=== PATIENT | female | born 1980 | race Two or more races ===

== ENCOUNTER 2022-01-13 17:03 | Emergency (ER) | payer MEDICAID ==
[~2022-01-13] VITALS: Ht 165.1 cm; Wt 84.5 kg
[2022-01-13 17:04] VITALS: BP 134/79
[2022-01-13 18:23] LABS: Basophils # (auto) 0 10 ^3/uL (0-0.2); Basophils % (auto) 0.6 % (0.0-2.0); Eosinophils # (auto) 0.4 10 ^3/uL (0-0.8); Eosinophils % (auto) 5.2 % (0.0-7.0); Hematocrit 41.6 % (36.0-46.0); Hemoglobin 13.6 g/dL (12.2-16.2); Lymphocytes # (auto) 2.4 10 ^3/uL (0.4-5.4); Lymphocytes % (auto) 34.1 % (10.0-50.0); Mean Corpuscular Hemoglobin 30.6 pg (28.0-32.0); Mean Corpuscular Hgb Conc. 32.8 g/dL (32.0-36.0); Mean Corpuscular Volume 93.4 fL (80.0-100.0); Monocytes # (auto) 0.6 10 ^3/uL (0-1.3); Monocytes % (auto) 8.8 % (0.0-12.0); Neutrophils # (auto) 3.7 10 ^3/uL (1.6-8.6); Neutrophils % (auto) 51.3 % (37.0-80.0); Nucleated Red Blood Cells % 0.6 %; Red Blood Cells 4.45 10^6/uL (4.0-5.20); Red Cell Distribution Width 12.2 % (11.8-14.3); White Blood Cell 7.1 10^3/uL (4.4-10.8)
[2022-01-13 18:34] LABS: Albumin 4.1 g/dL (3.4-5.0); BUN/Creatinine Ratio 19.4; Calcium 8.8 mg/dL (8.5-10.1); Magnesium 2.4 mg/dL (1.6-2.6); Potassium 3.9 mmol/L (3.5-5.1)
[2022-01-13 18:37] LABS: Bilirubin, Total 0.5 mg/dL (0.2-1.0); Total Protein 6.8 g/dL (6.4-8.2)
[2022-01-13 18:40] LABS: INR 0.97 (0.9-1.15); Partial Thromboplastin Time 28.6 sec (24.6-33.4)
== END 2022-01-14 01:49 | disposition home or self-care (01) ==
LOC: ER 17:03
DX: R07.89 Other chest pain (principal)
CPT/HCPCS: 36415; 71045; 80053; 83735; 83880; 84443; 84484; 85025; 85610; 85730; 93005

== ENCOUNTER 2023-01-06 16:13 | Emergency (ER) | payer MEDICAID ==
[~2023-01-06] VITALS: Ht 175.3 cm; Wt 81.1 kg
[~2023-01-06 16:13] MED LIST: CEPH500C PO; IBUP-1456 PO
[2023-01-06 17:23] LABS: Basophils # (auto) 0.1 10 ^3/uL (0-0.2); Basophils % (auto) 0.7 % (0.0-2.0); Eosinophils # (auto) 0.1 10 ^3/uL (0-0.8); Eosinophils % (auto) 1.3 % (0.0-7.0); Hematocrit 39.1 % (36.0-46.0); Hemoglobin 13.5 g/dL (12.2-16.2); Lymphocytes # (auto) 0.9 10 ^3/uL (0.4-5.4); Lymphocytes % (auto) 9.6 % (10.0-50.0); Mean Corpuscular Hemoglobin 31.3 pg (28.0-32.0); Mean Corpuscular Hgb Conc. 34.6 g/dL (32.0-36.0); Mean Corpuscular Volume 90.6 fL (80.0-100.0); Monocytes # (auto) 0.8 10 ^3/uL (0-1.3); Neutrophils # (auto) 7.7 10 ^3/uL (1.6-8.6); Neutrophils % (auto) 80.4 % (37.0-80.0); Red Blood Cells 4.32 10^6/uL (4.0-5.20); Red Cell Distribution Width 12.4 % (11.8-14.3); White Blood Cell 9.5 10^3/uL (4.4-10.8)
[2023-01-06] MEDS ORDERED: ACETAMINOPHEN 500 MG TAB PO ONE ×2 (17:30→19:15)
[2023-01-06 17:40] LABS: Potassium 3.6 mmol/L (3.5-5.1)
[2023-01-06 17:43] LABS: Urine Bacteria FEW /hpf (None Seen); Urine Blood Negative /uL (Negative); Urine WBC 17 /hpf (0 - 5)
[2023-01-06 17:56] LABS: Albumin 3.8 g/dL (3.4-5.0); BUN/Creatinine Ratio 12.3 (10.0-20.0); Bilirubin, Total 0.5 mg/dL (0.2-1.0); Calcium 8.9 mg/dL (8.5-10.1); Total Protein 7.3 g/dL (6.4-8.2)
[2023-01-06] MEDS ORDERED: LEVO750T8 PO (19:11)
[2023-01-06] MEDS ORDERED: ACET500T58 PO (19:11)
[2023-01-06] MEDS ORDERED: ZOFR4T PO (19:11)
[2023-01-06] MEDS ORDERED: ONDANSETRON ODT 4 MG TAB PO ONE (19:15)
[2023-01-06] MEDS ORDERED: levoFLOXacin 250 MG TAB PO ONE (19:15)
[2023-01-06 20:08] VITALS: BP 125/78; PULSE 79; RESP 18; TEMP 98.6; O2SAT 98
== END 2023-01-06 20:11 | disposition home or self-care (01) ==
LOC: ER 16:13
DX: N12 Tubulo-interstitial nephritis, not specified as acute or chronic (principal)
CPT/HCPCS: 36415; 80053; 81001; 85025; 99284; Q0162

== ENCOUNTER 2024-11-06 16:40 | Emergency (ER) | payer MEDICAID ==
[~2024-11-06] VITALS: Ht 167.6 cm; Wt 88.3 kg
[~2024-11-06 16:40] MED LIST changes: +ACET500T58 PO; +LEVO750T8 PO; +ZOFR4T PO
--- NOTE | 2024-11-06 17:35 | ED.PDOC ---
HPI Allergic reaction HPI Comments 43 y.o female presents to the ED for an evaluation of generalized pruritus associated with a sore throat, headache and swollen extremities and upper lip s/p eating shrimp yesterday. Patient reports an 8/10 constant sharp headache that is non radiating and has no alleviating factors. Patient denies any SOB, difficulty swallowing, chest or abdominal pain. Patient denies any known allergies or medical history. Chief Complaint: Allergic Reaction Time Seen by MD: 17:20 Primary Care Provider: UNKNOWN Reviewed Notes: Nurses Notes, Medications, Allergies Allergies: Coded Allergies: NO KNOWN ALLERGIES (Unverified , 01/13/22) Home Meds Active Scripts Ondansetron Odt 4MG Tab (ZOFRAN PO) 4 Mg Tb, 4 MG PO Q6HP PRN, #20 TAB ODT TAB-DISSOLVE IN MOUTH, THEN SWALLOW Prov:AMBER MOHR [facility] 01/06/23 Acetaminophen (Acetaminophen) 500 Mg Tab, 500 MG PO Q4HP PRN, #20 TAB Prov:AMBER MOHR [facility] 01/06/23 Levofloxacin (Levaquin 750 mg) 750 Mg Tab, 1 TAB PO DAILY for 9 Days, #9 TAB Prov:AMBER MOHR 01/06/23 Cephalexin Monohydrate (Cephalexin) 500 Mg Cap, 1 CAP PO QID, #28 CAP Prov:ANA STEVENS 06/02/22 Ibuprofen (Ibuprofen) 800 Mg Tab, 1 TAB PO TID, #20 TAB Prov:ANA STEVENS 06/02/22 Information Source: Patient Mode of Arrival: Ambulatory Severity: Moderate SOB: None Difficulty swallowing: None Pruritus: Moderate Timing: Days (1) Duration: Since onset Location: Generalized Exposed to: Food Developed: Pruritus, Throat Swelliing History of: None Modyifying Factors: None Past Medical History PAST MEDICAL HISTORY: Denies Surgical History: Denies all surgeries APPLICATION ASSISTANT History: No Pertinent APPLICATION ASSISTANT History Family History Family History: Reviewed,noncontributory to illness Social History Smoker: Non-Smoker Alcohol: Denies ETOH Use Drugs: Denies Drug Use Lives In: Home Constitutional: denies: chills, diaphoresis, fatigue, fever, malaise, sweats, weakness, others EENTM: denies: blurred vision, double vision, ear bleeding, ear discharge, ear drainage, ear pain, ear ringing, eye pain, eye redness, hearing loss, mouth pain, mouth swelling, nasal discharge, nose bleeding, nose congestion, nose pain, photophobia, tearing, throat pain, throat swelling, voice changes, others Respiratory: denies: cough, hemoptysis, orthopnea, SOB at rest, shortness of breath, SOB with excertion, stridor, wheezing, others Cardiovascular: denies: chest pain, dizzy spells, diaphoresis, Dyspnea on exertion, edema, irregular heart beat, left arm pain, lightheadedness, palpitations, PND, syncope, others Gastrointestinal: denies: abdomen distended, abdominal pain, blood streaked bowels, constipated, diarrhea, dysphagia, difficulty swallowing, hematemesis, melena, nausea, poor appetite, poor fluid intake, rectal bleeding, rectal pain, vomiting, others Genitourinary: denies: abnormal vagina bleeding, burning, dyspareunia, dysuria, flank pain, frequency, hematuria, incontinence, pain, , vagina discharge, urgency, others Neurological: reports: headache; denies: dizziness, fainting, left sided numbness, left sided weakness, numbness, paresthesia, pre-existing deficit, right sided numbness, right sided weakness, seizure, speech problems, tingling, tremors, weakness, others Musculoskeletal: denies: back pain, gout, joint pain, joint swelling, muscle pain, muscle stiffness, neck pain, others Integumetry: denies: bruises, change in color, change in hair/nails, dryness, laceration, lesions, lumps, rash, wounds, others Allergic/Immunocompromised: reports: Itching, others (sore throat and headache); denies: Difficulty Healing, Frequent Infections, Hives Hematologic/Lymphatic: denies: anemia, blood clots, easy bleeding, easy bruising, swollen glands, others Endocrine: denies: excessive hunger, excessive sweating, excessive thirst, excessive urination, flushing, intolerance to cold, intolerance to heat, unexplained weight gain, unexplained weight loss, others Psychiatric: denies: anxiety, bipolar disorder, depression, hopeless, panic disorder, schizophrenia, sleepless, suicidal, others All Other Systems: Reviewed and Negative Physical Exam General Appearance: No Apparent Distress, Normal HEENT: Normal ENT Inspection Neck: Normal Inspection Respiratory: Chest Non-Tender, Lungs Clear, No Accessory Muscle Use, No Respiratory Distress, Normal Breath Sounds Cardiovascular: No Edema, No JVD, No Murmur, No Gallop, Normal Peripheral Pulses, Regular Rate/Rhythm Breast Exam: Deferred Gastrointestinal: No Organomegaly, Non Tender, Normal Bowel Sounds Genitalia: Deferred Pelvic: Deferred Rectal: Deferred Extremities: Normal inspection Neurologic: Alert, pack master II-XII nml as Tested, No Motor Deficits, Normal Affect, Normal Mood, No Sensory Deficits Cerebellar Function: Normal Reflexes: Normal Skin: Dry, Normal Color, Warm Lymphatic: NOT DONE Was a procedure done? Was a procedure done?: No Differential diagnosis (all) Differential Diagnosis: Angioedema, Bronchospasm, Contact Dermatitis, Drug Reaction, Urticaria X-Ray, Labs, Meds, VS Vital Signs Date Time Temp Pulse Resp B/P (MAP) Pulse Ox O2 Delivery O2 Flow Rate FiO2 11/06/24 19:30 98.8 72 12 138/85 (102) 97 98.8 11/06/24 17:20 97.4 69 18 175/99 (124) 99 97.4 11/06/24 17:20 18 99 Room Air* 0 21 Current Medications Medications (Trade) Dose Ordered Sig/Adolfo Route Start Time Stop Time Status Last Admin Methylprednisolone Sodium Succinate (Solu Medrol) 125 mg ONCE ONCE IV 11/06/24 17:30 11/06/24 17:31 DC 11/06/24 17:42 Famotidine (Pepcid Injection) 20 mg ONCE ONCE IV 11/06/24 17:30 11/06/24 17:31 DC 11/06/24 17:40 Diphenhydramine HCl (Benadryl Injection) 50 mg ONCE ONCE IV 11/06/24 17:30 11/06/24 17:31 DC 11/06/24 17:41 Sodium Chloride 1,000 ml @ 1,000 mls/hr Q1H ONCE IV 11/06/24 17:30 11/06/24 18:29 DC 11/06/24 17:40 Ondansetron HCl (Zofran) 4 mg ONCE ONCE IV 11/06/24 18:15 11/06/24 18:16 DC 11/06/24 18:15 Time of 1ST Reevaluation: 17:34 Reevaluation 1ST: Unchanged Patient Education/Counseling: Diagnosis, Treatment, Prognosis Family Education/Counseling: No Family Present Departure 1 Departure Time of Disposition: 19:50 (Patient likely had an allergic reaction. Treat the patient and patient is feeling better. We will discharge patient home with outpatient follow up) Impression: Primary Impression: Allergic reaction Qualified Codes: T78.40XA - Allergy, unspecified, initial encounter Disposition: HOME / SELF CARE / HOMELESS Condition: Stable Additional Instructions: You had an allergic reaction. You received medications in the ER. You were prescribed steroids and an epinephrine pain. Please use as directed. You should follow up with your regular doctor within one week to ensure you are doing better. You may benefit from an appointment with an Him Specialist. If your symptoms worsen, or you have any other concerns then please return to the ER. e-Prescriptions Epinephrine (Anaphylaxis) (Auvi-Q) 0.1 Mg/0.1 Ml Inj 0.1 MG IJ O PRN for 1 Day, #1 INJ Prov: CORRY PAYAN MD 11/06/24 Prednisone (Prednisone) 20 Mg Tab 40 MG PO DAILY for 5 Days, #10 MG Prov: CORRY PAYAN MD 11/06/24 Discharged With: Self Critical Care Note Critical Care Time?: No Stability Stability form required: No Heart Score Heart Score: Heart Score Response (Comments) Value History N/A 0 EKG N/A 0 Age N/A 0 Risk Factors N/A 0 Troponin N/A 0 Total 0 I personally scribed for CORRY PAYAN MD ([email or web address]) on 11/06/24 at 17:35. Electronically submitted by Bushra Hoang ([facility]). CORRY PAYAN MD Nov 06, 2024 17:35
[2024-11-06] MEDS: FAMOTIDINE (10MG/ML) 2ML VL IV ONE (17:40)
[2024-11-06] MEDS: SODIUM CHLORIDE 0.9% 1,000 ML IV ONE (17:40)
[2024-11-06] MEDS: diphenhdrAMINE HCL 50 MG/1 ML VL IV ONE (17:41)
[2024-11-06] MEDS: methylPREDNISolone SOD SUCC 125 MG/2 ML VL IV ONE (17:42)
[2024-11-06] MEDS: ONDANSETRON HCL 4 MG/2 ML VIAL IV ONE (18:15)
[2024-11-06 19:30] VITALS: BP 138/85; TEMP 98.8
[2024-11-06] MEDS ORDERED: PRED20TA2 PO (19:52)
[2024-11-06] MEDS ORDERED: EPIN0.1I11 IJ (19:52)
[2024-11-06 19:55] VITALS: PULSE 72; RESP 12; O2SAT 98
== END 2024-11-06 20:04 | disposition home or self-care (01) ==
LOC: ER 16:49
DX: T78.49XA Other allergy, initial encounter (principal); J02.9 Acute pharyngitis, unspecified; X58.XXXA Exposure to other specified factors, initial encounter
CPT/HCPCS: 96361; 96374; 96375; 99284; J1200; J2405; J2919; J3490; J7030